=== PATIENT | female | born 1955 | race Caucasian/White ===

== ENCOUNTER → 2021-12-01 | Outpatient (CLI) | payer MEDICARE, OTHER ==
[~2021-12-01] MED LIST: AMBIEN10 MG PO; FLEXERIL 10 MG10 MG PO; FLONASE 0.05% N16 GM; HYDROCHLOROTHIA25 MG PO; LEVOTHYROXINE75 MCG PO; NORCO 7.5-3251 EACH PO; NORVASC10 MG PO; PAXIL10 MG PO; RELAFEN 750 MG750 MG PO; TOPAMAX50 MG PO; TOPROL XL25 MG PO; WELLBUTRIN XL150 MG PO; ZANTAC 150 MG150 MG PO
== END ==
LOC: HEART 5 09:45
DX: R05.3 Chronic cough (principal); R06.02 Shortness of breath
CPT/HCPCS: 94010